=== PATIENT | female | born 1990 | race Caucasian/White ===

== ENCOUNTER 2017-04-11 09:16 | Observation (INO) ==
[2017-04-11 10:39] LABS: Amphetamine Screen,Urine Negative ng/mL (Cutoff=1000); Barbiturate Screen,Urine Negative ng/mL (Cutoff=200); Benzodiazepines Screen,Urine Negative ng/mL (Cutoff=200); Cannabinoid Screen,Urine Negative ng/mL (Cutoff = 50); Cocaine Screen,Urine Negative ng/mL (Cutoff= 300); Opiate Screen,Urine Negative ng/mL (Cutoff=300); Phencyclidine Screen,Urine Negative ng/mL (Cutoff=25)
--- NOTE | 2017-04-11 10:47 | OB/GYN Progress Note ---
Date of Encounter: 04/11/17 Time of Encounter: 10:45 - Assessment and Plan (1) Decreased movement Current Visit: Yes Status: Acute Reactive tracing here baseline 135, patient states she has felt movement while here in triage. Discharged home with labor, and went to return to triage precautions. Patient and verbalized understanding Qualifiers: Fetus number: single or unspecified fetus Trimester: third trimester Qualified Code(s): O36.8130 - Decreased movements, third trimester, not applicable or unspecified (2) NST (non-stress test) reactive Current Visit: Yes Status: Acute baseline 135 Subjective - Subjective Interval history: 36+2 weeks gestation presents to triage with complaints of decreased movement. Patient states she last felt baby moving last night before bed , no movement this morning. Denies any contractions, vaginal bleeding, leaking of fluid. Patient states she is concerned with decreased movement because she was told the baby fluid was low. Ultrasound reviewed from last visit shows STEFANY of 8.2 Antepartum ROS: no loss of fluid, no vaginal bleeding, no movement normal , no contractions Objective - Vital Signs Vital Signs: Intake and Output 04/10/17 04/11/17 04/11/17 23:59 07:59 15:59 Other: Weight 94.937 kg Patient Weight 04/11/17 23:59 Weight 94.937 kg - Exam FHR: auscultation normal FHR comments: Baseline 135 Abdomen: Present: normal appearance, soft, gravid
== END 2017-04-11 10:52 | disposition home or self-care (01) ==
LOC: 1NENULAB
PROVIDERS: ADMIT Advanced Practice Midwife; ATTEND Advanced Practice Midwife

== ENCOUNTER 2017-04-29 05:58 | Inpatient (IN) ==
[2017-04-29] MEDS ORDERED: Naloxone 0.4 MG/ML INJ IVP PRN (06:15)
[2017-04-29] MEDS ORDERED: Famotidine 20 MG/2 ML VIAL IVP PRN (06:15)
[2017-04-29] MEDS ORDERED: Metoclopramide 10 MG/2 ML VIAL IVP PRN (06:15)
[2017-04-29] MEDS ORDERED: Ringers Solution, Lactated 1,000 ML IVC SCH (06:15)
[2017-04-29] MEDS ORDERED: *HR* Nalbuphine 20 MG/ML AMPUL IVP PRN (06:15)
[2017-04-29] MEDS ORDERED: Lidocaine 1% 20 ML MDV ID ONE (06:23)
[2017-04-29] MEDS ORDERED: miSOPROStol 25 MCG TABLET PO ONE (06:30)
[2017-04-29 06:42] LABS: Amphetamine Screen,Urine Negative ng/mL (Cutoff=1000); Barbiturate Screen,Urine Negative ng/mL (Cutoff=200); Benzodiazepines Screen,Urine Negative ng/mL (Cutoff=200); Cannabinoid Screen,Urine Negative ng/mL (Cutoff = 50); Cocaine Screen,Urine Negative ng/mL (Cutoff= 300); Opiate Screen,Urine Negative ng/mL (Cutoff=300); Phencyclidine Screen,Urine Negative ng/mL (Cutoff=25)
[2017-04-29 06:43] LABS: Basophils % 0.3 %; Eosinophils % 0.6 %; Hematocrit 36.4 % (35.3-44.9); Hemoglobin 11.7 g/dL (11.5-15.4); Immature Granulocytes % 0.3 % (0-4); Lymphocytes # 2.1 K/mcL (0.6-4.6); Mean Corpuscular HGB Conc 32.1 g/dL (31.6-35.5); Mean Corpuscular Hemoglobin 26.5 pg (28.0-33.3); Mean Corpuscular Volume 82.5 fL (83.0-100.0); Mean Platelet Volume 11.2 fL (9.4-12.4); Monocytes # 0.3 K/mcL (0.0-1.3); Monocytes % 5.3 %; Neutrophils # 3.9 K/mcL (1.6-8.9); Platelet Count 280 K/mcL (140-400); Red Blood Count 4.41 M/mcL (3.82-4.97); Red Cell Distribution Width 12.7 % (11.5-14.5); Segmented Neutrophils % 60.5 %
[2017-04-29] MEDS ORDERED: Oxytocin 20 units/ LR 1000 mL 20 UNIT/1,000 ML BAG IVC SCH ×3 (06:45→18:43)
[2017-04-29] MEDS ORDERED: Oxytocin 20 units/ LR 1000 mL 20 UNIT/1,000 ML BAG IVC ONE (06:54)
--- NOTE | 2017-04-29 06:57 | OB/GYN History & Physical ---
Date of Encounter: 04/29/17 Time of Encounter: 06:46 Assessment and Plan (1) 39 weeks gestation of Current visit: Yes Status: Acute (2) Encounter for induction of labor Current visit: Yes Status: Acute Admit to L&D for scheduled induction Start pitocin CEFM May have nubain or epidural as needed Anticipate Dr. Lyman aware of POC and agrees (3) NST (non-stress test) reactive Current visit: Yes Status: Acute History of Present Illness Chief complaint: Scheduled IOL HPI: Ms. Crawley is a 26 year old with an estimated date of of 05/06/17 at 39 weeks gestation dated by LMP. She presents for scheduled induction of labor. She reports feeling contractions every 3-4 minutes. She denies loss of fluid, vaginal bleeding, headache. Endorses good movement. Desires BSO to prevent future fertility. Labs: O+ GBS - HIV - RPR non reactive Hep B - Rubella immune Varicella immune Past Med Surg Social Fam HX - Past Medical History Medical history: no medical history Psychiatric history: no psych history - Social History Smoking Status: Never smoker Smokeless Tobacco Status: No Alcohol use: none Drug use: none - Family History Sister Living Status: Still Living Hx Family Cardiac Disorders: No Hx Family Respiratory Disorders: No Hx Family Cancer: No Hx Family GI Disorders: No Hx Family Endocrine Disorder: No Hx Family Neuromuscular Disorders: No Hx Family Neurologic Disorders: No Hx Family HEENT Disorders: No Hx Family Autoimmune Disorders: No Obstetrical History - Pregnancies : 3 Para: 2 Term: 2 ( # 1: 02-03-13, full term, vaginal delivery,male 6lbs 9oz "Ambrosio"/ # 2: vaginal delivery,02/17/14,female,bottle feeding,Caitlin, 7lbs, Dr. Mcneil delivered) : 0 Ab's: 0 Livin Medications and Allergies Vit/Iron Fumarate/FA [ Tablet] 1 each PO DAILY #30 tablet 09/25 [Rx] 3 Allergy/AdvReac Type Severity Reaction Status Date / Time No Known Allergies Allergy Verified 04/29/17 06:02 Review of System OB All systems PM: reviewed and no additional remarkable complaints except as stated Exam - Constitutional Constitutional: well developed, well nourished, no acute distress, average body habitus - HEENT HEENT: Normocephaly, Mucus Membranes Moist - Neck Neck exam: full ROM - Lungs Respiratory exam: CTAB - Cardiovascular Cardiovascular exam: RRR, +S1, +S2 - Breasts Breast: bilateral: normal - Abdomen Abdomen: Present: bowel sounds normal, gravid, non tender - Extremities Extremities exam: pedal edema, radial pulses palpable and symmetrical - Vulva Vulva: bilateral: normal - Vagina Vagina: Present: normal moisture - Cervix Dilation: 4 Effacement: 70 Station: -2 - Uterus Uterus exam: Present: normal size, normal contour - Anus/Rectum Anus/Rectum: Present: normal perianal skin Results Result Diagrams: 04/29/17 06:16 Abnormal lab results MCV 82.5 fL (83.0-100.0) L 04/29/17 06:16 MCH 26.5 pg (28.0-33.3) L 04/29/17 06:16 All other labs normal. - VTE Reasons for not Prescribing Prophylaxis: Treatment not Indicated - Low risk for VTE
[2017-04-29] MEDS ORDERED: Bupivacaine-MPF 0.25% 10 ML VIAL ONE (09:38)
[2017-04-29] MEDS ORDERED: *HR* FentaNYL (PF) 100 MCG/2 ML VIAL ONE (09:38)
[2017-04-29] MEDS ORDERED: Bupivacaine-MPF 0.25% 10 ML VIAL EP ONE (09:40)
[2017-04-29] MEDS ORDERED: *HR* FentaNYL (PF) 100 MCG/2 ML VIAL EP ONE (09:40)
[2017-04-29] MEDS ORDERED: Epidural Premix (fent/bupiv) 110 ML EP ONE ×2 (09:43→16:41)
[2017-04-29] MEDS ORDERED: Epidural Premix (fent/bupiv) 110 ML EP SCH (09:45)
--- NOTE | 2017-04-29 10:18 | Anesthesia Evaluation PreOp ---
Date of Encounter: 04/29/17 Time of Encounter: 10:16 - Past History Planned Operation: OSIEL Cardiac History: Denies any Significant Hx Pulmonary History: Denies Any Significant HX [employer] History: Denies Any Significant HX Other Medical History: Denies Any Significant HX Anesthesia History: No Prior Anesthetic Complications (denies family h/o GA complications), Problems (OSIEL x 2: 1st OSIEL--no issues; 2nd OSIEL--states she had an "allergic reaxn". Upon further questioning, patient's only symptom was pruritis.) : Yes Test: Positive Alcohol Use: none Drug use: none Medications and Allergies Vit/Iron Fumarate/FA [ Tablet] 1 each PO DAILY #30 tablet 09/25 [Rx] 3 Allergy/AdvReac Type Severity Reaction Status Date / Time No Known Allergies Allergy Verified 04/29/17 06:02 - Meds/Allergy Pre-op Review Medications Reviewed: Yes Allergies Reviewed: Yes Beta Blockers on Current Med List: No Anesthesia Results - Labs 04/29/17 06:16 Anesthesia Exam 118/80, HR 80, RR 16 Height: 1.57m Weight: 96kg NPO (# of Hours): solids > 8hr Pain Scale: 8 Pain Scale Used: Numeric (1 - 10) - HEENT Pupil (Motor): Pupils equal Mallampati: III Teeth: Normal Oral Opening: Greater than 3 - [employer] LOC: Oriented [employer] Motor: Normal RUE, Normal LUE, Normal RLE, Normal LLE, Normal Face [employer] Sensory: Normal: RUE, LUE, RLE, LLE, Face - Cardiac Rhythm: Regular Murmur: None - Pulmonary Breath Sounds: bilateral Clear Respiratory Effort: Symmetrical Anesthesia Assess/Plan ASA Score: 2 Modified [place] Scale for Level of Consciousness: Cooperative, oriented, and tranquil Anesthetic Plan: Regional Autologous Blood: No Monitoring Plan: Standard Monitors
--- NOTE | 2017-04-29 10:21 | Anesthesia Procedures ---
Date of Encounter: 04/29/17 Time of Encounter: 10:19 Procedures: Anesthesia - Epidural/Spinal Patient ID/Chart reviewed: Yes Patient examined: Yes OB Eval: Gestational age: 39 weeks OB Eval: : 3 OB Eval: Hx Para: 2 OB Eval: Dilated at (cm): 4 OB Eval: Contractions: Non-stressed pattern Consent Obtained: Yes Supplemental Oxygen: None/Room Air Site Prep: Aseptic Technique, Sterile prep and drape, Povidone-Iodine 1% Patient position: upright Local Anesthetic: Lidocaine 1% Amount of Local Anesthetic used: 3 Touhy Needle Gauge: 18 Touhy Needle Depth (cm): 6 Catheter Depth at Skin (cm): 11 Test Dose (1.5% Lido + Epi): Volume given (mls): 5 Test Dose Result: Negative Loading Dose: 0.25% Marcaine (mls): 5 Loading Dose: Fentanyl (mcg): 100 Loading Dose Administered: Thru Catheter Infusion Med: 0.125% Bupivacaine w/ 2 mcg/ml Fentanyl Infusion Rate (mls/hr): 12 (w/ demand bolus of 5mL q30min PRN) Catheter Secured in Place: Tegaderm, Tape Interspace Used: L3-L4 Loss of Resistance (PAULO): Yes Blood: No CSF: No Paresthesia: No Procedure: atraumatic; successful on 1st attempt Vitals + FHT's: please see Prabhakar HWANG's electronic records for VS entry
--- NOTE | 2017-04-29 14:59 | OB Labor Progress Note ---
Date of Encounter: 04/29/17 Time of Encounter: 14:57 Labor Progress Note - Subjective Subjective: Patient comfortable with epidural - Cervix Cervix: 5/90/-2 - Heart Tones Heart Tones: 135/moderate/positive accelerations/no decelerations - Rockholds Rockholds: Every 2-3 - Interventions Interventions: AROM at 1351 for clear fluid - Plan Plan: Intake any Pitocin per policy Anticipate
--- NOTE | 2017-04-29 17:49 | OB/GYN Procedure Note ---
Delivery - Delivery Date: 04/29/17 Provider: Christine Dinh Intrapartum events: none Delivery induction: AROM, oxytocin Delivery monitor: external FHT, external uterine Anesthesia: epidural Estimated Blood Loss: 200 - (s) A Delivery Date: 04/29/17 Infant Delivery Time: 17:28 Presentation: vertex Position: OA Route of delivery: Gender: Female Viability: Viable Pounds: 7 Ounces: 13 Weight Gram: 3535 kg at 1 minute: 8 at 5 mins: 9 Shoulder Dystocia: not encountered Specimens collected: cord blood Placenta: spontaneous Cord: 3 umbilical vessels - Repair Episiotomy: none Laceration Description: Perineal - 1st Degree - Complications Delivery complications: none Delivery comments: Elective induction at 39 weeks with Pitocin and AROM, patient progressed to complete. Maternal bearing down efforts to spontaneous vaginal delivery of liveborn girl. Vertex delivered OA, shoulders and body easily followed. No shoulder dystocia or nuchal cord encountered. Vigorous infant placed on maternal abdomen for drying and further stimulation. Apgars 8/9. Placenta delivered spontaneously and complete (Lucy). First-degree abrasion noted to left sided, hemostatic and left unrepaired. EBL 200. mother and left stable on labor and delivery - Disposition Mom disposition: stable in LDR [place] disposition: stable in LDR
[2017-04-29] MEDS ORDERED: Lanolin 7 G OINT...G. TP PRN ×2 (17:56→18:43)
[2017-04-29] MEDS ORDERED: Ibuprofen 600 MG TABLET PO PRN ×2 (17:56→18:43)
[2017-04-29] MEDS ORDERED: Acetaminophen 325 MG TABLET PO PRN ×2 (17:56→18:43)
[2017-04-29] MEDS ORDERED: Benzocaine/Menthol 56 GM AEROSOL SPRAY TP PRN ×2 (17:56→18:43)
[2017-04-30 06:04] LABS: Basophils % 0.2 %; Eosinophils # 0.1 K/mcL (0.0-0.6); Hematocrit 35.3 % (35.3-44.9); Hemoglobin 11.5 g/dL (11.5-15.4); Immature Granulocytes % 0.5 % (0-4); Lymphocytes # 2.1 K/mcL (0.6-4.6); Lymphocytes % 25.5 %; Mean Corpuscular HGB Conc 32.6 g/dL (31.6-35.5); Mean Corpuscular Hemoglobin 27.1 pg (28.0-33.3); Mean Corpuscular Volume 83.3 fL (83.0-100.0); Mean Platelet Volume 10.8 fL (9.4-12.4); Monocytes # 0.5 K/mcL (0.0-1.3); Monocytes % 6.3 %; Neutrophils # 5.5 K/mcL (1.6-8.9); Platelet Count 256 K/mcL (140-400); Red Blood Count 4.24 M/mcL (3.82-4.97); Red Cell Distribution Width 12.9 % (11.5-14.5); Segmented Neutrophils % 66.5 %
[2017-04-30] MEDS ORDERED: Prenatal Vit/FA 1 EACH TABLET PO SCH ×2 (09:00)
--- NOTE | 2017-04-30 09:58 | Discharge Summary ---
Date of Encounter: 04/30/17 Time of Encounter: 09:56 - Discharge Diagnosis (1) Vaginal delivery Priority: Primary Status: Acute Comments: Pt meeting milestones. She desires discharge home today. - Discharge Medications Prescriptions: Ibuprofen [Motrin] 600 mg PO Q6HR PRN #60 tablet PRN Reason: Cramping Docusate [Colace] 100 mg PO BID #60 capsule Home Medications: Vit/Iron Fumarate/FA [ Tablet] 1 each PO DAILY #30 tablet 09/25 [Rx] Benzocaine/Menthol [place] [Dermoplast [place]] 1 appl TP QID PRN aerosol 04/30/17 [Rx] Docusate [Colace] 100 mg PO BID #60 capsule 04/30/17 [Rx] Ibuprofen [Motrin] 600 mg PO Q6HR PRN #60 tablet 04/30/17 [Rx] Lanolin [Lansinoh] 1 appl TP QID PRN oint...g. 04/30/17 [Rx] Allergies/Adverse Reactions: 3 Allergy/AdvReac Type Severity Reaction Status Date / Time No Known Allergies Allergy Verified 04/29/17 06:02 Data Procedures and tests throughout hospitalization: Laboratory Tests 04/29/17 04/29/17 04/30/17 06:05 06:16 05:35 WBC 6.4 8.3 RBC 4.41 4.24 Hgb 11.7 11.5 Hct 36.4 35.3 MCV 82.5 L 83.3 MCH 26.5 L 27.1 L MCHC 32.1 32.6 RDW 12.7 12.9 Plt Count 280 256 MPV 11.2 10.8 Immature Gran % 0.3 0.5 Seg Neutrophils % 60.5 66.5 Lymphocytes % 33.0 25.5 Monocytes % 5.3 6.3 Eosinophils % 0.6 1.0 Basophils % 0.3 0.2 Neutrophils # 3.9 5.5 Lymphocytes # 2.1 2.1 Monocytes # 0.3 0.5 Eosinophils # 0.0 0.1 Basophils # 0.0 0.0 Urine Opiates Screen Negative Ur Barbiturates Screen Negative Ur Phencyclidine Scrn Negative Ur Amphetamines Screen Negative U Benzodiazepines Scrn Negative Urine Cocaine Screen Negative U Marijuana (THC) Screen Negative Labs on day of discharge: Labs from last 24 hours 04/30/17 05:35 WBC 8.3 RBC 4.24 Hgb 11.5 Hct 35.3 MCV 83.3 MCH 27.1 L MCHC 32.6 RDW 12.9 Plt Count 256 MPV 10.8 Immature Gran % 0.5 Seg Neutrophils % 66.5 Lymphocytes % 25.5 Monocytes % 6.3 Eosinophils % 1.0 Basophils % 0.2 Neutrophils # 5.5 Lymphocytes # 2.1 Monocytes # 0.5 Eosinophils # 0.1 Basophils # 0.0 Date of admission: 04/29/17 05:58 Primary care physician: PCP NONE Discharging clinician: Luisa Rhoades Anticipated date of discharge: 04/30/17 - Patient Status Disposition: Home, Self-Care Condition: Good Functional capacity at discharge: independent ambulation Overall status at discharge: patient is progressing back to baseline - Discharge Instructions Follow Up With: NONE,PCP [Primary Care Provider] - Christine Dinh, CNM [Advanced Practice Nurse] - - Diet and Activity Diet: regular diet Hospital Course Reason for admission: induction of labor Delivery: Episiotomy: none Laceration: 1st degree Other procedures: none complications: none Discharge diagnosis: IUP at term delivered [place] baby: female Hospital course: - Delivery Date: 04/29/17 Provider: Christine Dinh Intrapartum events: none Delivery induction: AROM, oxytocin Delivery monitor: external FHT, external uterine Anesthesia: epidural Estimated Blood Loss: 200 - (s) A Delivery Date: 04/29/17 Infant Delivery Time: 17:28 Presentation: vertex Position: OA Route of delivery: Gender: Female Viability: Viable Pounds: 7 Ounces: 13 Weight Gram: 3535 kg at 1 minute: 8 at 5 mins: 9 Shoulder Dystocia: not encountered Specimens collected: cord blood Placenta: spontaneous Cord: 3 umbilical vessels - Repair Episiotomy: none Laceration Description: Perineal - 1st Degree - Complications Delivery complications: none - Disposition Mom disposition: home PPD#1 [place] disposition: home with mother, bottle feeding Time Attestation: Total time spent providing and/or coordinating discharge services: Time Spent: Less than 30 minutes Exam - Constitutional Vitals: Temp Pulse Resp BP Pulse Ox 98.0 F 96 16 119/83 97 04/30/17 03:50 04/30/17 03:50 03/08/18 03:50 04/30/17 03:50 04/30/17 03:50 General appearance IM: A&O X 3 - Respiratory Respiratory exam: Present: CTAB - Cardiovascular Cardiovascular exam IM: Present: RRR - GI/Abdominal GI/Abdominal exam IM: soft - Uterine Tone: Firm Uterus Position: At Umbilicus - Extremities Exam Extremities exam IM: Present: normal inspection, pedal edema (mild bilaterally) - Neurological Exam Neurological exam: normal gait, oriented X3 - Psychiatric Additional comments: reports good mood, declines contraception, desires tubal in 6 weeks
[2017-04-30 10:16] VITALS: BP 124/89
== END 2017-04-30 17:30 | disposition home or self-care (01) | DRG 560 ==
LOC: 1NENULAB 05:58 → 1NENUOBS 20:25
PROVIDERS: ADMIT Advanced Practice Midwife; ATTEND Advanced Practice Midwife